=== PATIENT | male | born 1980 | race Caucasian/White ===

== ENCOUNTER 2023-11-12 15:14 | Emergency (ER) | payer MEDICAID ==
[~2023-11-12] VITALS: Ht 160 cm; Wt 55.0 kg
[2023-11-12 15:17] VITALS: O2SAT 100
[2023-11-12] MEDS: LIDOCAINE HCL/PF 1% 10 MG/ML 5ML VIAL INFIL ONE (18:26)
[2023-11-12] MEDS: BACITRACIN ZINC OINT UDPKT TOP ONE (18:26)
[2023-11-12 21:00] VITALS: BP 127/86; PULSE 90; RESP 17; TEMP 36.83628; O2SAT 100
[2023-11-12] MEDS ORDERED: CEPH500T MT (21:00)
== END 2023-11-12 21:10 | disposition home or self-care (01) ==
LOC: ER 15:14
DX: S81.012A Laceration without foreign body, left knee, initial encounter (principal); S50.02XA Contusion of left elbow, initial encounter; W18.39XA Other fall on same level, initial encounter; Y93.89 Activity, other specified; Y92.89 Other specified places as the place of occurrence of the external cause; Y99.8 Other external cause status
CPT/HCPCS: 73080; 73562; 73590; 73610; 73700; 12002; 99284; J3490; Z7610 ×3

== ENCOUNTER 2023-11-22 12:02 | Emergency (ER) | payer MEDICAID ==
[~2023-11-22] VITALS: Ht 172.7 cm; Wt 70.0 kg
[~2023-11-22 12:02] MED LIST: CEPH500T MT
[2023-11-22 12:19] VITALS: TEMP 98.3; O2SAT 97
[2023-11-22 14:34] VITALS: BP 118/68; PULSE 68; RESP 15; O2SAT 99
== END 2023-11-22 14:34 | disposition home or self-care (01) ==
LOC: ER 12:02
DX: S81.012D Laceration without foreign body, left knee, subsequent encounter (principal); Z98.890 Other specified postprocedural states; X58.XXXD Exposure to other specified factors, subsequent encounter
CPT/HCPCS: 99281

== ENCOUNTER 2024-01-12 10:13 | Emergency (ER) | payer MEDICAID ==
[~2024-01-12] VITALS: Ht 157.5 cm; Wt 54.4 kg
[2024-01-12 10:15] VITALS: O2SAT 98
[2024-01-12 11:14] VITALS: BP 118/65
[2024-01-12] MEDS: IBUPROFEN 400MG TABLET PO ONE (11:14)
[2024-01-12] MEDS: ACETAMINOPHEN 325MG TABLET PO ONE (11:15)
[2024-01-12 13:26] VITALS: PULSE 82; RESP 16; TEMP 36.72516; O2SAT 98
== END 2024-01-12 13:25 | disposition home or self-care (01) ==
LOC: ER 10:13
DX: S62.606A Fracture of unspecified phalanx of right little finger, initial encounter for closed fracture (principal); W01.0XXA Fall on same level from slipping, tripping and stumbling without subsequent striking against object, initial encounter; Y93.89 Activity, other specified; Y92.89 Other specified places as the place of occurrence of the external cause; Y99.8 Other external cause status
CPT/HCPCS: 29130; 73130; 99283